=== PATIENT | female | born 1980 | race Caucasian/White ===

== ENCOUNTER → 2023-07-04 18:08 | Outpatient (REF) | payer BC, SELFPAY | LOC: WDC 18:08 | PROVIDERS: ATTENDING PHYSICIAN Obstetrics & Gynecology; FAMILY PHYSICIAN Family Medicine | DX: Z12.31 Encounter for screening mammogram for malignant neoplasm of breast (principal) | CPT/HCPCS: 77063; 77067 ==

== ENCOUNTER → 2023-08-09 11:35 | Outpatient (REF) | payer BC, SELFPAY | LOC: WDC 11:35 | PROVIDERS: ATTENDING PHYSICIAN Obstetrics & Gynecology | DX: R92.2 Inconclusive mammogram (principal) | CPT/HCPCS: 76641 ==

== ENCOUNTER → 2023-10-22 10:45 | Outpatient (REF) | payer BC, SELFPAY | LOC: PNTC 10:45 | PROVIDERS: ATTENDING PHYSICIAN Obstetrics & Gynecology | DX: O09.529 Supervision of elderly multigravida, unspecified trimester (principal); Z36.0 Encounter for antenatal screening for chromosomal anomalies; Z36.82 Encounter for antenatal screening for nuchal translucency | CPT/HCPCS: 76801; 76813 ==

== ENCOUNTER → 2024-03-25 09:52 | Outpatient (REF) | payer BC, SELFPAY | LOC: PNTC 09:52 | PROVIDERS: ATTENDING PHYSICIAN Obstetrics & Gynecology | DX: O09.529 Supervision of elderly multigravida, unspecified trimester (principal); O99.280 Endocrine, nutritional and metabolic diseases complicating pregnancy, unspecified trimester | CPT/HCPCS: 59025; 76815 ==

== ENCOUNTER → 2024-04-01 09:52 | Outpatient (REF) | payer BC, SELFPAY | LOC: PNTC 09:52 | PROVIDERS: ATTENDING PHYSICIAN Obstetrics & Gynecology | DX: O09.529 Supervision of elderly multigravida, unspecified trimester (principal); O99.280 Endocrine, nutritional and metabolic diseases complicating pregnancy, unspecified trimester | CPT/HCPCS: 59025; 76815 ==

== ENCOUNTER → 2024-04-08 10:00 | Outpatient (REF) | payer BC, SELFPAY | LOC: PNTC 10:00 | PROVIDERS: ATTENDING PHYSICIAN Obstetrics & Gynecology | DX: O09.529 Supervision of elderly multigravida, unspecified trimester (principal); O99.280 Endocrine, nutritional and metabolic diseases complicating pregnancy, unspecified trimester | CPT/HCPCS: 59025; 76815 ==

== ENCOUNTER → 2024-04-15 09:53 | Outpatient (REF) | payer BC, SELFPAY | LOC: PNTC 09:53 | PROVIDERS: ATTENDING PHYSICIAN Obstetrics & Gynecology | DX: O99.280 Endocrine, nutritional and metabolic diseases complicating pregnancy, unspecified trimester (principal); O99.019 Anemia complicating pregnancy, unspecified trimester | CPT/HCPCS: 59025; 76815 ==

== ENCOUNTER → 2024-04-21 09:32 | Outpatient (REF) | payer BC, SELFPAY | LOC: PNTC 09:32 | PROVIDERS: ATTENDING PHYSICIAN Obstetrics & Gynecology | DX: O09.529 Supervision of elderly multigravida, unspecified trimester (principal); O99.280 Endocrine, nutritional and metabolic diseases complicating pregnancy, unspecified trimester | CPT/HCPCS: 59025; 76816 ==

== ENCOUNTER → 2024-04-29 09:25 | Outpatient (REF) | payer BC, SELFPAY | LOC: PNTC 09:25 | PROVIDERS: ATTENDING PHYSICIAN Obstetrics & Gynecology | DX: O09.529 Supervision of elderly multigravida, unspecified trimester (principal); O09.519 Supervision of elderly primigravida, unspecified trimester; O99.280 Endocrine, nutritional and metabolic diseases complicating pregnancy, unspecified trimester | CPT/HCPCS: 59025; 76815 ==

== ENCOUNTER 2024-05-01 19:37 | Inpatient (IN) | payer BC, SELFPAY ==
[2024-05-01 19:50] VITALS: BMI 30.1
[2024-05-01 20:07] LABS: % Basophils 0.4 % (0-2); % Eosinophils 1.5 % (0-6); % Immature Granulocytes 0.7 % (0-0.5); % Lymphocytes 23.5 % (20.5-51.1); % Monocytes 7.6 % (1.7-9.3); % Neutrophils 66.3 % (42.2-75.2); Absolute Eosinophils 0.2 10^3/uL (0-0.7); Absolute Immature Granulocytes 0.1 10^3/uL (0-0.05); Absolute Lymphocytes 2.4 10^3/uL (1.2-3.4); Absolute Monocytes 0.8 10^3/uL (0.1-0.6); Absolute Neutrophils 6.9 10^3/uL (1.4-6.5); Hematocrit 35.2 % (37.0-47.0); Hemoglobin 12.3 g/dL (12.0-16.0); Mean Corp Hgb Conc. 34.9 g/dL (33.0-37.0); Mean Corpuscular Hgb 32.4 pg (27.0-31.0); Mean Corpuscular Volume 92.6 fL (81.0-99.0); Mean Platelet Volume 9.3 fL (7.4-10.4); Nucleated Red Blood Cells % 0 %; Platelet Count 218 10^3/uL (130-400); Red Cell Dist. Width 13.4 % (11.5-14.5); White Blood Cell Count 10.4 10^3/uL (4.8-10.8)
[2024-05-01 20:25] VITALS: BP 125/89
[2024-05-01] MEDS: CYTOTEC 25 MICROGRAM VAG (20:45)
[2024-05-02] MEDS: CYTOTEC 50 MICROGRAM PO (01:01)
[2024-05-02] MEDS: STADOL 1 MG IV (04:02)
[2024-05-02] MEDS: LR 1000 IV ×2 (04:02→06:35)
[2024-05-02] MEDS: SUBLIMAZE 100 MCG EPIDURAL (06:01)
[2024-05-02] MEDS: FENTANYL/BUPIVACAINE 100 EPIDURAL (06:01)
[2024-05-02] MEDS: CYTOTEC PO (06:23)
[2024-05-02] MEDS: SYNTHROID 125 MCG PO (06:38)
[2024-05-02] MEDS: PITOCIN 30 UNITS/NSS 500 ML IV (08:08)
[2024-05-02] MEDS: HYDROCORTISONE 2.5% CREAM 1 APPLIC TOPICAL (14:29)
[2024-05-02] MEDS: MOTRIN 600 MG PO ×2 (14:29→20:30)
[2024-05-02] MEDS: TYLENOL 650 MG PO (17:38)
[2024-05-02] MEDS: PRENATAL PLUS 1 TABLET PO (23:50)
[2024-05-03] MEDS: TYLENOL 650 MG PO ×4 (01:29→21:46)
[2024-05-03] MEDS: SYNTHROID 125 MCG PO (05:46)
[2024-05-03] MEDS: MOTRIN 600 MG PO ×3 (05:49→21:46)
[2024-05-03 05:51] LABS: Hemoglobin 11.9 g/dL (12.0-16.0)
[2024-05-03] MEDS: SENOKOT-S 1 TABLET PO (09:25)
[2024-05-03] MEDS: HYDROCORTISONE 2.5% CREAM 1 APPLIC TOPICAL (09:27)
[2024-05-03] MEDS: PRENATAL PLUS 1 TABLET PO (21:43)
[2024-05-04] MEDS: MOTRIN 600 MG PO ×2 (04:24→10:36)
[2024-05-04] MEDS: TYLENOL 650 MG PO ×2 (04:25→09:10)
[2024-05-04] MEDS: SYNTHROID 125 MCG PO (06:05)
[2024-05-04] MEDS: SENOKOT-S 1 TABLET PO (09:03)
[2024-05-06 12:21] LABS: Syphilis/T. pallidum Ab Reflex Negative (Negative)
== END 2024-05-04 11:44 | disposition home or self-care (01) | DRG 807 ==
LOC: LDRP 19:37
PROVIDERS: Obstetrics & Gynecology; ADMITTING PHYSICIAN Obstetrics & Gynecology; FAMILY PHYSICIAN Family Medicine
PROC: 3E0P7VZ Introduction of Hormone into Female Reproductive, Via Natural or Artificial Opening (ICD-10-PCS; 2024-05-01)
PROC: 0KQM0ZZ Repair Perineum Muscle, Open Approach (ICD-10-PCS; 2024-05-02)
PROC: 10E0XZZ Delivery of Products of Conception, External Approach (ICD-10-PCS; 2024-05-02)
DX: O99.284 Endocrine, nutritional and metabolic diseases complicating childbirth (principal); Z37.0 Single live birth; Z3A.40 40 weeks gestation of pregnancy; O70.1 Second degree perineal laceration during delivery; E03.9 Hypothyroidism, unspecified
CPT/HCPCS: 36415; 85014; 85018; 85025; 86780; 86850; 86900; 86901